=== PATIENT | female | born 1985 | race Caucasian/White ===

== ENCOUNTER 2023-10-25 07:29 | Emergency (ER) | payer BC, SELFPAY ==
[2023-10-25 07:42] VITALS: BP 127/72
--- NOTE | 2023-10-25 08:01 | ED.GENMED ---
History of Present Illness
General
Chief Complaint: Musculo-Skeletal Complaint
Time Seen by Provider: 10/25/23 07:49
Travel History
Have you had any contact with someone who has COVID-19?: No
Do you have any symptoms of coronavirus? Fever > 100 degrees, chills, cough, shortness of breath, sore throat, loss of taste or smell, muscle aches, or headache?: No
History of Present Illness
History of Present Illness:
38-year-old female with no significant past medical history presents to the emergency department for evaluation of bilateral volar wrist pain associated with burning discomfort to the fingers that has been waking her from sleep over the past 2
nights. She notes that she is very physically active with a fitness routine but denies any acute onset of pain while working out. Reports of burning discomfort to the middle fingers bilaterally, right worse than left. Also notes mild neck
discomfort over the past few days and chronic knee pain for which she takes meloxicam but this just started 2 days ago.
Past History
Past History
ED Past Medical History: None
ED Past Surgical History: None
Social History
Tobacco: Non-smoker
Living: with family
Employment: Employed
Review of Systems
Review of Systems
Allergies reviewed?: Yes
All Other Systems: ROS reviewed and negative except as documented in HPI and ROS
Phy Exam
Physical Exam
Physical Exam:
GEN: Well appearing, NAD, WDWN
HEENT: Oral mucosa moist, no scleral icterus
Cardiac: Regular rate
Lung: No respiratory distress, no tachypnea
MSK: No gross deformity or injuries. Non tender to the forearm soft tissues/bony prominences. Mildly positive Tinel's sign bilaterally. Mildly positive Phalen's sign bilaterally. No muscular atrophy
Skin: Good color, no pallor or jaundice, no rashes
Neuro: AO x3, moves all extremities freely
Psych: Calm, cooperative
Course
Vital Signs
Initial and Last Documented VS:
Initial Vital Signs
Temp Pulse Resp BP Pulse Ox
98.1 F 82 20 127/72 100
10/25/23 07:42 10/25/23 07:42 10/25/23 07:42 10/25/23 07:42 10/25/23 07:42
Last Documented Vital Signs
Temp Pulse Resp BP Pulse Ox
98.1 F 82 20 127/72 100
10/25/23 07:42 10/25/23 07:42 10/25/23 07:42 10/25/23 07:42 10/25/23 07:42
MDM/Problems Addressed
MDM/Problems Addressed:
Certainly symptoms could represent a muscular/wrist sprain however nighttime symptoms and distal radicular nature highly suspicious for carpal tunnel. Discussed typical supportive care, given associated neck pain recommend outpatient hand surgery or
PCP f/u to discuss EMG if symptoms not improving. No bony tenderness or gross deformities, do not see indication for imaging at this point
*Critical Care Note
Total Time (30-74mins, 75-104mins- exclusive of procedures): Not Applicable
ED Attending Note
-
Portions of this chart may have been created with voice recognition software.� Occasional wrong word or��sound alike� substitutions may have occurred due to the inherent limitations of voice recognition software.
Discharge Plan
Departure
Patient Disposition: Home (Routine Discharge)
Date of Disposition: 10/25/23
Time of Disposition: 08:04
Patient with high blood pressure during this ER visit?: No
Discharge Problem:
Bilateral carpal tunnel syndrome
Instructions: Carpal Tunnel Syndrome (DC), Carpal Tunnel Exercises
Prescriptions:
No Action
Vitamin Tablet
1 tab PO DAILY
levocetirizine 5 MG tablet
5 mg PO DAILY
oxycodone-acetaminophen 5 MG/325 MG tablet
1 tab PO Q4HPRN PRN (Reason: moderate pain) Qty: 30 0RF
ibuprofen 600 MG tablet
600 mg PO Q6HPRN PRN (Reason: moderate pain/cramps) Qty: 0 0RF
docusate sodium 100 MG capsule
100 mg PO BID Qty: 0 0RF
Referrals:
Jeffy Padilla DO [Family Provider] -
Jesús Ashford MD [Active] -
Activity Restrictions/Additional Instructions:
Your symptoms are most likely advertising account representative of carpal tunnel syndrome. Please take anti-inflammatory such as 600 mg ibuprofen every 6-8 hours, you may also take meloxicam as you have previously prescribed in place of this. Please purchase
[id number] carpal tunnel wrist braces to wear at nighttime as this helps diminish nerve pressure along the wrist and may diminish your nighttime wake ups. Rarely carpal tunnel syndrome is caused by cervical spine issues. The diagnosis is
typically made by an electromyelogram or EMG which can be obtained by either your primary care physician or hand specialist
Discharge Date and Time
Print Language: CYPRIOT
== END 2023-10-25 08:10 | disposition home or self-care (01) ==
LOC: EMR 07:29
PROVIDERS: EMERGENCY PHYSICIAN Student in an Organized Health Care Education/Training Program; FAMILY PHYSICIAN Family Medicine
DX: G56.03 Carpal tunnel syndrome, bilateral upper limbs (principal); G89.29 Other chronic pain
CPT/HCPCS: 99281

== ENCOUNTER 2024-09-21 04:29 | Emergency (ER) | payer OTHER, SELFPAY ==
[2024-09-21] VITALS (18 sets, daily range): BP systolic 83–130; BP diastolic 48–75; PULSE 85–94; BMI 25.7
[2024-09-21] MEDS: ZOFRAN 4 MG IV (05:17)
[2024-09-21 05:38] LABS: % Basophils 0.2 % (0-2); % Eosinophils 1.1 % (0-6); % Immature Granulocytes 0.4 % (0-0.5); % Lymphocytes 4.1 % (20.5-51.1); % Monocytes 3.6 % (1.7-9.3); % Neutrophils 90.6 % (42.2-75.2); Absolute Eosinophils 0.1 10^3/uL (0-0.7); Absolute Lymphocytes 0.2 10^3/uL (1.2-3.4); Absolute Monocytes 0.2 10^3/uL (0.1-0.6); Absolute Neutrophils 5.1 10^3/uL (1.4-6.5); Hematocrit 36.6 % (37.0-47.0); Hemoglobin 12.6 g/dL (12.0-16.0); Mean Corp Hgb Conc. 34.4 g/dL (33.0-37.0); Mean Corpuscular Hgb 27.4 pg (27.0-31.0); Mean Corpuscular Volume 79.6 fL (81.0-99.0); Mean Platelet Volume 10.5 fL (7.4-10.4); Nucleated Red Blood Cells % 0 %; Platelet Count 159 10^3/uL (130-400); Red Cell Dist. Width 13.7 % (11.5-14.5); White Blood Cell Count 5.6 10^3/uL (4.8-10.8)
[2024-09-21 05:45] LABS: HCG, Serum Qualitative Screen Negative
[2024-09-21 05:56] LABS: ALT (SGPT) 26 U/L (0-35); AST (SGOT) 23 U/L (14-36); Albumin 3.9 g/dl (3.5-5.0); Alkaline Phosphatase 38 U/L (38-126); Blood Urea Nitrogen 26 mg/dl (7-17); Calcium 8.7 mg/dl (8.4-10.2); Carbon Dioxide 21 mmol/L (22-30); Chloride 105 mmol/L (98-107); Estimated Creatinine Clearance 86 ml/min; Glucose 152 mg/dl (70-99); Potassium 3.8 mmol/L (3.5-5.1); Sodium 136 mmol/L (135-145); Total Bilirubin 0.9 mg/dl (0.2-1.3); Total Protein 6.3 g/dl (6.3-8.2); eGFR > 60.00
[2024-09-21] MEDS: NSS 500 IV (06:47)
[2024-09-21] MEDS: TYLENOL 650 MG PO (06:47)
--- NOTE | 2024-09-21 07:07 | ED.GENMED ---
Addendum entered and electronically signed by Surya Castañeda MD 09/22/24 19:40:
CT report suggestive of thyroid nodule discussed with patient via phone. Advised PCP f/u, including potential dedicated thyroid US as outpatient. Pt also informed that she can stop by medical records to obtain CT report
Original Note:
History of Present Illness
General
Chief Complaint: Head Injury
Source: patient
Exam Limitations: none
Time Seen by Provider: 09/21/24 06:06
Nursing documentation reviewed up to this point in time: agreed with
History of Present Illness
History of Present Illness:
Patient with multiple vomiting episodes and diarrhea, since last night, presents to ED after passing out while having another episode of vomiting in the bathroom, this morning. There are multiple family members currently, who are experiencing
similar symptoms. Patient reports mild abdominal cramping sensation. Denies recent change in medications or diet. Denies fever or chills. Denies chest pain or palpitations. Patient does report feeling sweaty before passing out. Patient does
have bruising noted over her forehead and also complaining of neck pain, since the fall. Denies blurred vision. Denies dizziness. Denies loss of sensation or weakness. Denies difficulty with swallowing. Denies difficulty with speech. Patient
otherwise is healthy, without any significant medical history.
Past History
Past History
ED Past Medical History: None
ED Past Surgical History: None
Social History
Tobacco: Non-smoker
Living: with family
Employment: Employed
Review of Systems
Review of Systems
Allergies reviewed?: Yes
All Other Systems: ROS reviewed and negative except as documented in HPI and ROS
Constitutional: Reports no symptoms
EENT: Reports no symptoms
Respiratory: Reports no symptoms; Denies trouble breathing
Cardiac: Reports diaphoresis and syncope; Denies chest pain or palpitations
ABD/GI: Reports abdominal pain, nausea, vomiting and diarrhea
Musculoskeletal: Reports no symptoms
Skin: Reports no symptoms
Neurological: Reports headache; Denies dizzy or weakness
Phy Exam
Physical Exam
Physical Exam:
Physical Exam
General: mild distress, not acutely ill. afebrile
Head: an approx 1cm superficial abrasion noted over mid-forehead without active bleeding, with swelling/tenderness.
Neck: supple. normal range of motion. normal posterior pharynx
Heart: s1/s2 regular rate and rhythm, no murmur.
Lungs: no acute respiratory distress. clear bilaterally
Abdomen: normal bowel sounds. not tender. no distention
Neuro: alert and oriented x 3. no focal neurological deficits. normal speech.
Skin: no rash
Psychiatric: well kept. interactive and cooperative
Extremities: no edema. no calf tenderness.
Course
Orders/Labs/Results
Orders:
Orders
09/21/24 05:07
Test Result ONCE
09/21/24 05:11
Ondansetron Injectable [Zofran] 4 mg .ROUTE .STK-MED ONE
09/21/24 05:17
Complete Blood Count/With Diff Urgent
Comprehensive Metabolic Panel Urgent
HCG, Serum Qualitative Screen Urgent
Ondansetron Injectable [Zofran] 4 mg IV NOW STA
09/21/24 06:42
CT Cervical Spine W/o Iv Contr Urgent
Comment:
Reason For Exam: trauma
CT Head W/o Iv Contrast Urgent
Comment:
Reason For Exam: trauma to forehead
Acetaminophen [Tylenol] 650 mg PO NOW STA
09/21/24 06:43
0.9% Sodium Chloride 500 ml [Nss] 500 ml IV BOLUS
09/21/24 09:42
Orthostatic VS- Treatment ONCE
09/21/24 10:01
0.9% Sodium Chloride 1000 ml [Nss] 1,000 ml IV BOLUS
Abnormal Lab Results
09/21/24
05:17
Hct 36.6 L %
(37.0-47.0)
MCV 79.6 L fL
(81.0-99.0)
MPV 10.5 H fL
(7.4-10.4)
Absolute Lymphs (auto) 0.2 L 10^3/uL
(1.2-3.4)
Neutrophils % 90.6 H %
(42.2-75.2)
Lymphocytes % 4.1 L %
(20.5-51.1)
Carbon Dioxide 21 L mmol/L
(22-30)
BUN 26 H mg/dl
(7-17)
Glucose 152 H mg/dl
(70-99)
09/21/24 05:17
09/21/24 05:17
Vital Signs
Initial and Last Documented VS:
Initial Vital Signs
Temp Pulse Resp BP Pulse Ox
97.4 F 80 20 92/55 100
09/21/24 04:35 09/21/24 04:35 09/21/24 04:35 09/21/24 04:35 09/21/24 04:35
Last Documented Vital Signs
Temp Pulse Resp BP Pulse Ox
97.4 F 97 18 103/58 97
09/21/24 04:35 09/21/24 12:48 09/21/24 06:26 09/21/24 12:48 09/21/24 12:48
MDM/Problems Addressed
MDM/Problems Addressed:
History and exam consistent with likely viral gastroenteritis. Syncopal episode this morning, likely vasovagal in nature, secondary to dehydration along with vagal response from vomiting. No indication for suture repair, as there is slight
abrasion noted on her forehead, well-approximated with placement of 2 Steri-Strips.
Orthostatic vital signs checked, symptomatic. Patient given additional 1 L of IV fluids, with improvement. Patient is able to ambulate independently with steady gait, prior to discharge.
Patient will be discharged home in stable condition, to the care of her friend, with recommendation to continue hydration at home, along with PCP follow-up.
*Critical Care Note
Total Time (30-74mins, 75-104mins- exclusive of procedures): Not Applicable
ED Attending Note
-
Portions of this chart may have been created with voice recognition software.� Occasional wrong word or��sound alike� substitutions may have occurred due to the inherent limitations of voice recognition software.
Discharge Plan
Departure
Patient Disposition: Home (Routine Discharge)
Date of Disposition: 09/21/24
Time of Disposition: 12:17
Patient with high blood pressure during this ER visit?: No
Condition: Fair
Discharge Problem:
Syncope, vasovagal, Gastroenteritis, Abrasion of forehead
Instructions: Viral gastroenteritis in adults, Vasovagal Response (DC)
Prescriptions:
New
ondansetron 4 mg Tablet,Disintegrating
4 mg PO TIDPRN PRN (Reason: nausea/vomiting) Qty: 12 0RF
No Action
Vitamin Tablet
1 tab PO DAILY
levocetirizine 5 MG tablet
5 mg PO DAILY
oxycodone-acetaminophen 5 MG/325 MG tablet
1 tab PO Q4HPRN PRN (Reason: moderate pain) Qty: 30 0RF
ibuprofen 600 MG tablet
600 mg PO Q6HPRN PRN (Reason: moderate pain/cramps) Qty: 0 0RF
docusate sodium 100 MG capsule
100 mg PO BID Qty: 0 0RF
Referrals:
UNKNOWN - PT DOES,NOT KNOW [Family Provider] -
Activity Restrictions/Additional Instructions:
As discussed, please follow-up with your primary care physician with any further concerns. Please continue hydration at home. Your prescription has been sent electronically to [facility] pharmacy in [place].
Interventions
Interventions:
*Risk Screen - Suicide Last Done: 09/21/24 04:35
*General Assessment Last Done: 09/21/24 12:00
*Neglect/Abuse Screening Last Done: 09/21/24 04:35
*ED- Fall Risk Assessment Last Done: 09/21/24 05:51
*ED COVID-19 Vaccine History Last Done: 09/21/24 05:51
*Nursing Disposition Last Done: 09/21/24 12:48
ZK-Vmqbtr-Oiacyaxxxs Assessment Last Done: 09/21/24 05:51
ED- Cardiac Assessment Last Done: 09/21/24 05:51
ED- Neurological Assessment Last Done: 09/21/24 05:51
ED- Pulmonary Assessment Last Done: 09/21/24 05:51
ED-Skin Assessment Last Done: 09/21/24 05:51
Discharge Date and Time
Discharge Date/Time: 09/21/24 12:50
Print Language: TAJIK
[2024-09-21] MEDS: NSS 1000 IV (10:30)
== END 2024-09-21 12:50 | disposition home or self-care (01) ==
LOC: EMR 04:29
PROVIDERS: Student in an Organized Health Care Education/Training Program; EMERGENCY PHYSICIAN Emergency Medicine
DX: R55 Syncope and collapse (principal); K52.9 Noninfective gastroenteritis and colitis, unspecified; S00.81XA Abrasion of other part of head, initial encounter; W19.XXXA Unspecified fall, initial encounter
CPT/HCPCS: 96374; 96361; 99284; 70450; 72125; 80053; 84703; 85025

== ENCOUNTER 2025-03-09 12:42 | Emergency (ER) | payer OTHER, SELFPAY ==
[2025-03-09 12:45] VITALS: BP 111/73
[2025-03-09 13:43] VITALS: BMI 28.2
[2025-03-09 13:45] VITALS: BP 113/62
--- NOTE | 2025-03-09 13:51 | EDRN ---
Pt seen here in past for L ankle/heel area of rash. Pt states she has poison sumac rash and fungal rash in the area, presently being treated. pt states area has become warm and thinks she had a fever due to having chills. Pt also had difficulty
walking due to pain radiating from foot up lower leg medially and laterally and up into upper leg and is a 8-9/10.
--- NOTE | 2025-03-09 14:06 | ED.GENMED ---
History of Present Illness
General
Chief Complaint: Skin Problem
Source: patient
Exam Limitations: none
Time Seen by Provider: 03/09/25 13:57
History of Present Illness
History of Present Illness:
39yoF with a history of seasonal allergies and asthma presenting for evaluation of left leg pain. Patient has been dealing with a fungal infection of her left ankle since August of this year. She has been following with dermatology is currently
taking terbinafine. She also developed poison sumac about a week ago. She started to experience shooting pains from the bottom of her foot up the leg a few days ago and now has developed swelling near the ankle over the past 24 hours. She was
playing tug of war about 5 days ago and believes she may have injured the ankle at that time but is not sure. She denies any other trauma. She reports chills and malaise but denies fevers. No chest pain or shortness of breath. Patient is mainly
concerned about a blood clot or an Achilles tendon injury.
Past History
Past History
ED Past Medical History: None
ED Past Surgical History: None
Social History
Tobacco: Non-smoker
Living: with family
Employment: Employed
Phy Exam
General Physical Exam
General Presentation: well appearing and no apparent distress
General Skin: warm and dry
General Habitus: normal
General Mental: alert
ENT Exam
ENT Exam: normocephalic
Pulmonary Exam
Pulmonary Exam: no respiratory distress
Neurological Exam
Neurological Exam: alert
Roy Coma Scale
Eye Opening: Spontaneous
Verbal Response: Oriented
Motor Response: Obeys Commands
GCS Total Score: 15
Musculoskeletal Exam
Musculoskeletal Exam: other (L ankle: Mild-moderate amount of swelling noted near the lateral malleolus. +Tenderness along the Achilles tendon although no palpable defect noted and Walker test is negative. There is also tenderness to the proximal
calf without pitting edema.2+ DP pulse.)
Skin Exam
Skin Exam: warm/dry and other (Fungal rash noted to the lateral L ankle with scattered red rash more proximally. )
Psychiatric Exam
Psychiatric Exam: normal mood/affect
Course
Orders/Labs/Results
Orders:
Orders
03/09/25 14:06
Venous Doppler Lwr Ext Left [US Periph Venous LOWER Ext LT] Urgent
Comment:
Reason For Exam: L leg pain
Vital Signs
Initial and Last Documented VS:
Initial Vital Signs
Temp Pulse Resp BP Pulse Ox
98.3 F 94 16 111/73 100
03/09/25 12:45 03/09/25 12:45 03/09/25 12:45 03/09/25 12:45 03/09/25 12:45
Last Documented Vital Signs
Temp Pulse Resp BP Pulse Ox
98.3 F 92 16 113/62 99
03/09/25 12:45 03/09/25 13:45 03/09/25 13:45 03/09/25 13:45 03/09/25 14:12
MDM/Problems Addressed
Differential Diagnosis Includes:
39yoF here with L ankle/leg pain. She reports dealing with both a fungal infection and poison roel recently. Now with swelling near the ankle and pain up the leg to the medial thigh. C/o chills. VSS. She is well appearing in no distress. There is
swelling near the lateral malleolus on exam. LLE is neurovascularly intact. Differential diagnosis includes: sprain, cellulitis, Achilles tendonitis, DVT
Venous duplex obtained which is negative for DVT. Offered x-rays which patient declines and there is an overall very low suspicion for fracture. Will start on a course of Keflex to cover for possible developing cellulitis. Supportive care
discussed including RICE. Advised follow-up with PCP and ED return precautions reviewed. Patient was discharged in stable condition.
*Pulse Oximetry
SaO2: 99
Oxygen Mode of Delivery: Room air
Patient hypoxic: no (100%)
*Critical Care Note
Total Time (30-74mins, 75-104mins- exclusive of procedures): Not Applicable
ED Attending Note
-
Portions of this chart may have been created with voice recognition software.� Occasional wrong word or��sound alike� substitutions may have occurred due to the inherent limitations of voice recognition software.
Discharge Plan
Departure
Patient Disposition: Home (Routine Discharge)
Date of Disposition: 03/09/25
Time of Disposition: 16:43
Patient with high blood pressure during this ER visit?: No
Discharge Problem:
Cellulitis of left ankle
Instructions: Cellulitis (Skin Infection), Adult (DC)
Prescriptions:
New
cephalexin 500 mg capsule
500 mg PO Q6H 7 Days Qty: 28 0RF
No Action
Vitamin Tablet
1 tab PO DAILY
levocetirizine 5 MG tablet
5 mg PO DAILY
oxycodone-acetaminophen 5 MG/325 MG tablet
1 tab PO Q4HPRN PRN (Reason: moderate pain) Qty: 30 0RF
ibuprofen 600 MG tablet
600 mg PO Q6HPRN PRN (Reason: moderate pain/cramps) Qty: 0 0RF
docusate sodium 100 MG capsule
100 mg PO BID Qty: 0 0RF
ondansetron 4 mg Tablet,Disintegrating
4 mg PO TIDPRN PRN (Reason: nausea/vomiting) Qty: 12 0RF
Referrals:
[facility], [Other]
Kortney Pickens PA-C [Family Provider, Family Practice]
Activity Restrictions/Additional Instructions:
Take antibiotics as prescribed. Elevate your leg and apply ice to help with swelling. You may take Tylenol and ibuprofen as needed for pain.
Please follow-up with your family doctor next week. Return to the ER with any new or worsening symptoms including spreading redness or fevers.
Interventions
Interventions:
*Risk Screen - Suicide Last Done: 03/09/25 12:47
*General Assessment Last Done: 03/09/25 13:44
*Neglect/Abuse Screening Last Done: 03/09/25 12:47
*ED- Fall Risk Assessment Last Done: 03/09/25 13:44
*ED COVID-19 Vaccine History Last Done: 03/09/25 13:44
*Nursing Disposition Last Done: 03/09/25 17:03
ED-Skin Assessment Last Done: 03/09/25 13:45
Discharge Date and Time
Discharge Date/Time: 03/09/25 17:06
Print Language: FRISIAN
--- NOTE | 2025-03-09 15:03 | EDRN ---
Pt awaiting to go to US at this time. Called US and unable to take pt at this time.
--- NOTE | 2025-03-09 16:39 | EDRN ---
Benito MUSTAFA in room w/pt.
--- NOTE | 2025-03-09 17:00 | EDRN ---
Pt declined offer of crutches.
== END 2025-03-09 17:06 | disposition home or self-care (01) ==
LOC: EMR 12:42
PROVIDERS: EMERGENCY PHYSICIAN Emergency Medicine; FAMILY PHYSICIAN Physician Assistant Medical
DX: L03.116 Cellulitis of left lower limb (principal); J45.909 Unspecified asthma, uncomplicated
CPT/HCPCS: 99284; 93971

== ENCOUNTER → 2025-05-17 09:15 | Outpatient (REF) | payer OTHER, SELFPAY | LOC: HWRAD 09:15 | PROVIDERS: ATTENDING PHYSICIAN Nurse Practitioner Family; FAMILY PHYSICIAN Physician Assistant Medical | DX: E04.1 Nontoxic single thyroid nodule (principal) | CPT/HCPCS: 76536 ==